=== PATIENT | male | born 1955 | race Caucasian/White ===

== ENCOUNTER 2017-09-07 09:34 | Inpatient (IN) | payer OTHER ==
[~2017-09-07] VITALS: Ht 170.2 cm; Wt 69.8 kg
[~2017-09-07 09:34] MED LIST: AMOXICILLIN 50500 MG PO; NO HOME MEDICATIONS; NORCO 325 MG-51 TAB PO; NORCO 325 MG-7.1 TAB PO
[2017-09-07] MEDS ORDERED: TENORMIN 2525 MG/TAB PO (09:55)
[2017-09-07 10:47] LABS: INR 1.4 (0.8-3.0); PROTHROMBIN TIME 16.1 SECONDS (9.7-12.8)
[2017-09-07 10:49] LABS: HEMOGLOBIN 12.9 g/dl (13.5-18.0); MEAN CELL VOLUME 104 fl (80.0-100.0); MEAN CORPUSCULAR HEMOGLOBIN 37 pg (27.0-31.0); MEAN CORPUSCULAR HGB CONC 35 g/dl (33.0-37.0); MEAN PLATELET VOLUME 9.9 fl (7.4-10.4); PLATELET COUNT 257 K/mm3 (130-400); WHITE BLOOD COUNT 16.3 K/mm3 (4.8-10.8)
[2017-09-07 10:50] LABS: ADD PATHOLOGY DIFF REVIEW NO; ADJUSTED CALCIUM 9.1 mg/dL (8.4-10.2); ALANINE AMINOTRANSFERASE 58 U/L (21-72); ALBUMIN 3.1 gm/dL (3.5-5.0); ALKALINE PHOSPHATASE 377 U/L (50-136); ANION GAP 6 mmol/L (7-16); BILIRUBIN,TOTAL 5.3 mg/dL (0.0-1.0); BLOOD UREA NITROGEN 7 mg/dL (9-20); CALCIUM 8.4 mg/dL (8.4-10.2); CARBON DIOXIDE 25 mmol/L (22-30); CHLORIDE 100 mmol/L (98-107); CREATININE, serum 0.55 mg/dL (0.66-1.25); GLUCOSE 125 mg/dL (74-106); HEMATOCRIT 36.5 % (42.0-52.0); LIPASE 259 U/L (23-300); POTASSIUM 3.6 mmol/L (3.4-5.0); SODIUM 131 mmol/L (137-145); TOTAL PROTEIN 6.9 gm/dL (6.4-8.2)
[2017-09-07 10:51] LABS: ALCOHOL(ethanol),MEDICAL < 10 mg/dL
[2017-09-07 11:23] LABS: BAND 13 % (0-10); EOSINOPHIL 1 % (0-4); LYMPHOCYTE 14 % (20.0-51.0); NEUTROPHILS 59 % (42.0-75.2); PLATELET ESTIMATE NORMAL (NORMAL); TARGET CELLS 2+; TOTAL CELLS COUNTED 100
[2017-09-07 13:07] VITALS: BP 117/79; PULSE 88; TEMP 98.1
[2017-09-07 16:14] LABS: PERITONEAL FLUID RBC 0 /mm3 (0-0)
[2017-09-07 16:26] VITALS: BP 114/62; PULSE 98; TEMP 99.4
[2017-09-07 18:58] VITALS: BP 137/81; PULSE 100; TEMP 98.3
[2017-09-07 23:46] VITALS: BP 104/72; PULSE 96; TEMP 98.7
[2017-09-08 00:38] LABS: COLLECTION METHOD CLEAN CATCH
[2017-09-08 01:20] LABS: MUCOUS Present /lpf; PH 6 (5-8); SQUAMOUS EPITHELIAL None Seen /hpf; URINE APPEARANCE Clear; URINE BACTERIA Rare /hpf; URINE BILIRUBIN Positive (NEGATIVE); URINE BLOOD Negative (NEGATIVE); URINE CALCIUM OXALATE CRYSTAL Present /hpf; URINE COLOR Amber; URINE GLUCOSE Negative (NEGATIVE); URINE KETONE Negative (NEGATIVE); URINE LEUKOCYTE ESTERASE Negative (NEGATIVE); URINE PROTEIN(semi-quant) Negative (NEGATIVE); URINE UROBILINOGEN >=4.0 mg/dL (NEGATIVE)
[2017-09-08 05:05] VITALS: BP 117/72; PULSE 82; TEMP 99.1
[2017-09-08 07:19] LABS: BASO # 0.1 (0.0-0.2); BASO % 0.7 % (0.0-2.0); EOS # 0.2 (0.0-0.7); EOS % 1.8 % (0-4.0); GRAN # 8.6 (1.4-6.5); GRAN % 70.7 % (42.2-75.2); LYMPH # 1.8 (1.2-3.4); LYMPH % 14.6 % (20.0-51.0); MEAN CELL VOLUME 105 fl (80.0-100.0); MEAN CORPUSCULAR HGB CONC 35 g/dl (33.0-37.0); MONO # 1.4 (0.1-0.6); MONO % 11.6 % (1.7-9.3); PLATELET COUNT 200 K/mm3 (130-400); RED BLOOD COUNT 3.02 M/mm3 (4.20-5.60); WHITE BLOOD COUNT 12.2 K/mm3 (4.8-10.8)
[2017-09-08 07:26] LABS: HEMATOCRIT 31.7 % (42.0-52.0); HEMOGLOBIN 11.2 g/dl (13.5-18.0); MEAN CORPUSCULAR HEMOGLOBIN 37 pg (27.0-31.0)
[2017-09-08 07:44] LABS: ADJUSTED CALCIUM 9.1 mg/dL (8.4-10.2); ALBUMIN 2.3 gm/dL (3.5-5.0); BILIRUBIN,TOTAL 5.6 mg/dL (0.0-1.0); CALCIUM 7.7 mg/dL (8.4-10.2); CREATININE, serum 0.54 mg/dL (0.66-1.25); MAGNESIUM 1.5 mg/dL (1.6-2.3); POTASSIUM 3.6 mmol/L (3.4-5.0); TOTAL PROTEIN 5.5 gm/dL (6.4-8.2)
[2017-09-08 08:11] VITALS: BP 105/69; PULSE 74; TEMP 98
[2017-09-08 11:20] VITALS: BP 101/70; PULSE 92; TEMP 97.6
[2017-09-08 15:50] VITALS: BP 108/70; PULSE 106; TEMP 97.4
[2017-09-08 20:58] VITALS: BP 128/69; PULSE 95; TEMP 98.7
[2017-09-08 23:33] VITALS: BP 111/81; PULSE 110; TEMP 97.5
[2017-09-09] VITALS (11 sets, daily range): BP systolic 100–136; BP diastolic 58–88; PULSE 80–110; TEMP 97.9–98.4
[2017-09-09 06:45] LABS: HEMATOCRIT 32.6 % (42.0-52.0); HEMOGLOBIN 11.5 g/dl (13.5-18.0); MEAN CELL VOLUME 104 fl (80.0-100.0); MEAN CORPUSCULAR HEMOGLOBIN 37 pg (27.0-31.0); MEAN CORPUSCULAR HGB CONC 35 g/dl (33.0-37.0); PLATELET COUNT 205 K/mm3 (130-400); RED BLOOD COUNT 3.13 M/mm3 (4.20-5.60); WHITE BLOOD COUNT 12.3 K/mm3 (4.8-10.8)
[2017-09-09 06:46] LABS: ADD PATHOLOGY DIFF REVIEW NO
[2017-09-09 07:03] LABS: ADJUSTED CALCIUM 9.1 mg/dL (8.4-10.2); ALBUMIN 2.4 gm/dL (3.5-5.0); BILIRUBIN,TOTAL 5.2 mg/dL (0.0-1.0); CALCIUM 7.8 mg/dL (8.4-10.2); CREATININE, serum 0.53 mg/dL (0.66-1.25); MAGNESIUM 1.8 mg/dL (1.6-2.3); POTASSIUM 3.5 mmol/L (3.4-5.0)
[2017-09-09 07:36] LABS: BAND 5 % (0-10); BASOPHIL 1 % (0-2); LYMPHOCYTE 19 % (20.0-51.0); NEUTROPHILS 65 % (42.0-75.2); PLATELET ESTIMATE NORMAL (NORMAL); TOTAL CELLS COUNTED 100
[2017-09-09] MEDS ORDERED: LASIX 40MG TABL40 MG PO (12:31)
[2017-09-09] MEDS ORDERED: ZANTAC 150150 MG PO (12:31)
[2017-09-09] MEDS ORDERED: K-TAB20 PO (12:32)
[2017-09-09] MEDS ORDERED: ALDACTONE50 MG PO (12:32)
[2017-09-11 17:19] LABS: ALPHA 1 ANTITRYPSIN TOTAL 171 mg/dL (())
== END 2017-09-09 15:07 | disposition home or self-care (01) | DRG 433 ==
LOC: COL.ER 09:34 → MEDICAL 11:17
PROVIDERS: Emergency Medicine; Internal Medicine Gastroenterology; Nurse Practitioner Family
PROC: 0W9G3ZZ Drainage of Peritoneal Cavity, Percutaneous Approach (ICD-10-PCS; principal; 2017-09-07)
PROC: 0D978ZX Drainage of Stomach, Pylorus, Via Natural or Artificial Opening Endoscopic, Diagnostic (ICD-10-PCS; 2017-09-09)
DX: K70.31 Alcoholic cirrhosis of liver with ascites (principal); E87.1 Hypo-osmolality and hyponatremia; I10 Essential (primary) hypertension; E78.5 Hyperlipidemia, unspecified; E83.42 Hypomagnesemia; F17.210 Nicotine dependence, cigarettes, uncomplicated
CPT/HCPCS: 99222-AI; 99232-AI; 99239; J1650; J2704; J3430; J3475; J7030

== ENCOUNTER 2018-03-01 08:55 | Day surgery (SDC) | payer OTHER ==
[~2018-03-01] VITALS: Ht 170.2 cm; Wt 67.9 kg
[~2018-03-01 08:55] MED LIST changes: +ALDACTONE50 MG PO; +K-TAB20 PO; +LASIX 40MG TABL40 MG PO; +TENORMIN 2525 MG/TAB PO; +ZANTAC 150150 MG PO
[2018-03-01] MEDS ORDERED: ALDACTONE 100M100 MG PO (09:41)
[2018-03-01] MEDS ORDERED: K-TAB20 PO (09:42)
[2018-03-01] MEDS ORDERED: LASIX 40MG TABL40 MG PO (09:42)
[2018-03-01] MEDS ORDERED: ZANTAC 150MG T150 MG PO (09:43)
[2018-03-01 10:06] VITALS: BP 109/54; PULSE 74; TEMP 97.6
[2018-03-01 10:59] VITALS: BP 120/67; PULSE 78; TEMP 97
[2018-03-01 11:15] VITALS: BP 125/78; PULSE 72
== END 2018-03-01 11:40 | disposition home or self-care (01) ==
LOC: SDCO 08:55
DX: Z12.11 Encounter for screening for malignant neoplasm of colon (principal); Z86.010 Personal history of colon polyps; D12.8 Benign neoplasm of rectum; I10 Essential (primary) hypertension; F17.210 Nicotine dependence, cigarettes, uncomplicated; K74.60 Unspecified cirrhosis of liver; Z86.73 Personal history of transient ischemic attack (TIA), and cerebral infarction without residual deficits; K21.9 Gastro-esophageal reflux disease without esophagitis; Z87.19 Personal history of other diseases of the digestive system
CPT/HCPCS: J2704; J3010; J7030

== ENCOUNTER 2018-10-30 18:54 | Emergency (ER) | payer OTHER ==
[~2018-10-30] VITALS: Ht 170.2 cm; Wt 69.5 kg
[~2018-10-30 18:54] MED LIST changes: +ALDACTONE 100M100 MG PO; +ZANTAC 150MG T150 MG PO
[2018-10-30 19:05] VITALS: TEMP 97.9
[2018-10-30 20:22] LABS: BASO # 0.1 (0.0-0.2); BASO % 0.7 % (0.0-2.0); EOS # 0.2 (0.0-0.7); EOS % 2.1 % (0-4.0); GRAN # 5.4 (1.4-6.5); HEMOGLOBIN 14.8 g/dl (13.5-18.0); LYMPH # 1.2 (1.2-3.4); LYMPH % 14.4 % (20.0-51.0); MEAN CELL VOLUME 98 fl (80.0-100.0); MEAN CORPUSCULAR HEMOGLOBIN 36 pg (27.0-31.0); MEAN CORPUSCULAR HGB CONC 37 g/dl (33.0-37.0); MEAN PLATELET VOLUME 8.8 fl (7.4-10.4); MONO # 1.7 (0.1-0.6); MONO % 19.2 % (1.7-9.3); PLATELET COUNT 123 K/mm3 (130-400); RED BLOOD COUNT 4.07 M/mm3 (4.20-5.60)
[2018-10-30 20:41] LABS: ALBUMIN 4.2 gm/dL (3.5-5.0); BILIRUBIN,TOTAL 3.7 mg/dL (0.0-1.0); CALCIUM 9.2 mg/dL (8.4-10.2); CREATININE, serum 1.14 mg/dL (0.66-1.25); MAGNESIUM 1.6 mg/dL (1.6-2.3); POTASSIUM 4.7 mmol/L (3.4-5.0); TOTAL PROTEIN 8.1 gm/dL (6.4-8.2)
[2018-10-30 20:48] LABS: TROPONIN-I 0.027 ng/mL (0.000-0.034)
[2018-10-30 23:05] VITALS: BP 119/68; PULSE 95
== END 2018-10-30 23:06 | disposition home or self-care (01) ==
LOC: COL.ER 18:54
PROVIDERS: Emergency Medicine
DX: E87.1 Hypo-osmolality and hyponatremia (principal); E78.3 Hyperchylomicronemia; F17.210 Nicotine dependence, cigarettes, uncomplicated
CPT/HCPCS: J7030

== ENCOUNTER 2018-11-05 17:41 | Emergency (ER) | payer OTHER ==
[~2018-11-05] VITALS: Ht 170.2 cm; Wt 72.7 kg
[2018-11-05 17:48] VITALS: BP 121/60; TEMP 97.1
[2018-11-05 19:01] LABS: HEMATOCRIT 38.6 % (42.0-52.0); MEAN CELL VOLUME 100 fl (80.0-100.0); MEAN CORPUSCULAR HEMOGLOBIN 36 pg (27.0-31.0); MEAN CORPUSCULAR HGB CONC 36 g/dl (33.0-37.0); MEAN PLATELET VOLUME 8.7 fl (7.4-10.4); PLATELET COUNT 111 K/mm3 (130-400); RED BLOOD COUNT 3.85 M/mm3 (4.20-5.60); REDCELL DISTRIBUTION WIDTH-CV 12.5 % (11.5-14.5)
[2018-11-05 19:15] LABS: ALANINE AMINOTRANSFERASE 26 U/L (21-72); ALBUMIN 3.8 gm/dL (3.5-5.0); ALCOHOL(ethanol),MEDICAL < 10 mg/dL; ALKALINE PHOSPHATASE 275 U/L (50-136); ANION GAP 7 mmol/L (7-16); AST,SGOT 71 U/L (15-37); BILIRUBIN,TOTAL 2.5 mg/dL (0.0-1.0); BLOOD UREA NITROGEN 11 mg/dL (9-20); C-REACTIVE PROTEIN < 0.5 mg/dL (0.0-0.9); CALCIUM 9.5 mg/dL (8.4-10.2); CARBON DIOXIDE 21 mmol/L (22-30); CHLORIDE 94 mmol/L (98-107); CREATININE, serum 0.85 mg/dL (0.66-1.25); GLUCOSE 111 mg/dL (74-106); MAGNESIUM 1.7 mg/dL (1.6-2.3); PHOSPHOROUS 3.9 mg/dL (2.5-4.5); POTASSIUM 4.8 mmol/L (3.4-5.0); SODIUM 122 mmol/L (137-145); TOTAL PROTEIN 7.4 gm/dL (6.4-8.2)
[2018-11-05 19:44] VITALS: PULSE 89
[2018-11-05 19:45] LABS: BAND 4 % (0-10); BASOPHIL 1 % (0-2); EOSINOPHIL 1 % (0-4); LYMPHOCYTE 20 % (20.0-51.0); NEUTROPHILS 62 % (42.0-75.2)
[2018-11-05 19:46] LABS: PLATELET ESTIMATE NORMAL (NORMAL)
== END 2018-11-05 19:45 | disposition home or self-care (01) ==
LOC: COL.ER 17:41
PROVIDERS: Emergency Medicine
DX: E87.1 Hypo-osmolality and hyponatremia (principal); E78.00 Pure hypercholesterolemia, unspecified; F17.210 Nicotine dependence, cigarettes, uncomplicated

== ENCOUNTER 2019-10-14 12:58 | Emergency (ER) | payer OTHER ==
[~2019-10-14] VITALS: Ht 167.6 cm; Wt 71.8 kg
[2019-10-14 13:05] VITALS: TEMP 98.2
[2019-10-14] MEDS ORDERED: MOBIC15 MG PO (13:18)
[2019-10-14 13:52] LABS: BASO # 0.1 (0.0-0.2); BASO % 0.9 % (0.0-2.0); EOS # 0.1 (0.0-0.7); EOS % 1.3 % (0-4.0); GRAN # 4.5 (1.4-6.5); GRAN % 66.2 % (42.2-75.2); HEMATOCRIT 38.1 % (42.0-52.0); HEMOGLOBIN 13.2 g/dl (13.5-18.0); LYMPH % 14.4 % (20.0-51.0); MEAN CELL VOLUME 98 fl (80.0-100.0); MEAN CORPUSCULAR HEMOGLOBIN 34 pg (27.0-31.0); MEAN CORPUSCULAR HGB CONC 35 g/dl (33.0-37.0); MEAN PLATELET VOLUME 10.4 fl (7.4-10.4); MONO # 1.1 (0.1-0.6); MONO % 16.9 % (1.7-9.3); PLATELET COUNT 85 K/mm3 (130-400); RED BLOOD COUNT 3.88 M/mm3 (4.20-5.60); REDCELL DISTRIBUTION WIDTH-CV 14.5 % (11.5-14.5)
[2019-10-14 13:54] LABS: ALBUMIN 3.7 gm/dL (3.5-5.0); BILIRUBIN,TOTAL 3.9 mg/dL (0.0-1.0); CALCIUM 8.9 mg/dL (8.4-10.2); CREATININE, serum 0.73 (0.66-1.25); INR 1.4 (0.8-3.0); POTASSIUM 4.3 mmol/L (3.4-5.0); PROTHROMBIN TIME 16.7 SECONDS (9.7-12.8); TOTAL PROTEIN 7.3 gm/dL (6.4-8.2)
[2019-10-14 14:05] LABS: TROPONIN-I 0.032 ng/mL (0.000-0.035)
[2019-10-14 16:30] VITALS: BP 145/77; PULSE 91
== END 2019-10-14 16:45 | disposition short-term general hospital (02) ==
LOC: COL.ER 12:58
PROVIDERS: Emergency Medicine
DX: I61.9 Nontraumatic intracerebral hemorrhage, unspecified (principal); I10 Essential (primary) hypertension; E78.5 Hyperlipidemia, unspecified
CPT/HCPCS: J7050; Q9967

== ENCOUNTER 2022-03-23 16:17 | Inpatient (IN) | payer OTHER ==
[~2022-03-23] VITALS: Ht 167.6 cm; Wt 74.8 kg
[~2022-03-23 16:17] MED LIST changes: +MOBIC15 MG PO
[2022-03-23 17:09] LABS: BASO # 0.1 K/mm3 (0.0-0.2); BASO % 1.5 % (0.0-2.0); EOS # 0.1 K/mm3 (0.0-0.7); EOS % 1.6 % (0.0-4.0); GRAN # 3.5 K/mm3 (1.4-6.5); GRAN % 56.6 % (42.2-75.2); HEMOGLOBIN 12.4 g/dl (13.5-18.0); LYMPH # 1.3 K/mm3 (1.2-3.4); LYMPH % 20.9 % (20.0-51.0); MEAN CELL VOLUME 96 fl (80.0-100.0); MEAN CORPUSCULAR HEMOGLOBIN 35 pg (27-31); MEAN CORPUSCULAR HGB CONC 37 g/dl (33.0-37.0); MEAN PLATELET VOLUME 11.9 fl (7.4-10.4); MONO # 1.2 K/mm3 (0.1-0.6); MONO % 18.8 % (1.7-9.3); PLATELET COUNT 53 K/mm3 (130-400); RED BLOOD COUNT 3.55 M/mm3 (4.20-5.60); REDCELL DISTRIBUTION WIDTH-CV 16.4 % (11.5-14.5)
[2022-03-23 17:36] LABS: ALBUMIN 2.5 gm/dL (3.4-4.8); BILIRUBIN,TOTAL 9.5 mg/dL (0.2-1.2); CALCIUM 8.5 mg/dL (8.4-10.2); CREATININE, serum 0.85 mg/dL (0.72-1.25); POTASSIUM 3.2 mmol/L (3.5-4.5); TOTAL PROTEIN 6.6 gm/dL (6.2-8.1)
[2022-03-23 17:49] LABS: TROPONIN-I 0.128 ng/mL (0.00-0.033)
[2022-03-23 18:43] LABS: COLLECTION METHOD CLEAN CATCH
[2022-03-23 18:50] LABS: PROTHROMBIN TIME 23.1 SECONDS (9.7-12.8)
[2022-03-23] MEDS ORDERED: NEURONTIN300 MG/CAP PO (18:56)
[2022-03-23 19:08] LABS: AMORPHOUS CRYSTAL Present (NOT PRESENT); MUCOUS Present (NOT PRESENT); PH 7 (5-8); SQUAMOUS EPITHELIAL None Seen /hpf (0-10); URINE APPEARANCE Hazy (CLEAR/HAZY); URINE BACTERIA None Seen /hpf (NONE SEEN); URINE BLOOD 1+ (NEGATIVE); URINE CALCIUM OXALATE CRYSTAL Present (NOT PRESENT); URINE COLOR Amber (YELLOW); URINE GLUCOSE Negative (NEGATIVE); URINE KETONE Negative (NEGATIVE); URINE NITRATE Negative (NEGATIVE); URINE PROTEIN(semi-quant) Negative (NEGATIVE); URINE RBC >50 /hpf (0-2); URINE UROBILINOGEN >=4.0 (NEGATIVE)
[2022-03-23] MEDS ORDERED: PEPCID 20MG TAB20 MG PO (19:31)
[2022-03-23 23:35] VITALS: BP 128/66; PULSE 118; TEMP 98.2
[2022-03-24 04:05] VITALS: BP 134/67; PULSE 117; TEMP 98.4
--- NOTE | 2022-03-24 05:45 | NUR ---
PT ARRIVED TO THE MEDICAL FLOOR AT 2330HRS TO ROOM 313. PT A&O X 4; VSS; O2 RA. PT DENIED GENERAL PAIN, CHEST PAIN, PALPITATIONS, SOB, N,V,D OR DIZZINESS. ADMISSIONS ASSESSMENT AND MED REC ARE COMPLETE. PT ORIENTED TO ROOM AND HOSPITAL POLICY. POC DISCUSSED WITH PT. PT VERBALIZED UNDERSTANDING. ALL QUESTIONS AND CONCERNS ADDRESSED. PT EXPRESSED NO OTHER NEEDS AT THIS TIME. CALL LIGHT WITHIN REACH.
[2022-03-24 07:33] LABS: BASO # 0.1 K/mm3 (0.0-0.2); BASO % 1.1 % (0.0-2.0); EOS # 0.2 K/mm3 (0.0-0.7); GRAN # 3.6 K/mm3 (1.4-6.5); GRAN % 58.4 % (42.2-75.2); HEMOGLOBIN 11.4 g/dl (13.5-18.0); LYMPH # 1.2 K/mm3 (1.2-3.4); LYMPH % 19.4 % (20.0-51.0); MEAN CELL VOLUME 98 fl (80.0-100.0); MEAN CORPUSCULAR HEMOGLOBIN 36 pg (27-31); MEAN CORPUSCULAR HGB CONC 36 g/dl (33.0-37.0); MEAN PLATELET VOLUME 11.5 fl (7.4-10.4); MONO # 1.1 K/mm3 (0.1-0.6); MONO % 17.6 % (1.7-9.3); RED BLOOD COUNT 3.19 M/mm3 (4.20-5.60)
[2022-03-24 07:42] LABS: HEMATOCRIT 31.3 % (42.0-52.0)
[2022-03-24 07:45] VITALS: BP 128/70; PULSE 118; TEMP 98.3
[2022-03-24 07:46] LABS: PLATELET COUNT 40 K/mm3 (130-400)
[2022-03-24 08:12] LABS: ALBUMIN 2.1 gm/dL (3.4-4.8); BILIRUBIN,TOTAL 9.6 mg/dL (0.2-1.2); CALCIUM 7.4 mg/dL (8.4-10.2); CREATININE, serum 0.77 mg/dL (0.72-1.25); MAGNESIUM 1.8 mg/dL (1.6-2.6); PHOSPHOROUS 3.1 mg/dL (2.3-4.7); POTASSIUM 3.6 mmol/L (3.5-4.5); TOTAL PROTEIN 5.7 gm/dL (6.2-8.1)
[2022-03-24 08:25] LABS: TROPONIN-I 0.149 ng/mL (0.00-0.033)
--- NOTE | 2022-03-24 08:33 | NUR ---
Patient laying in bed upon entering the room. Patient states he has not eaten in 4days and would like some breakfast. This RN ordered the patient breakfast, he ate about 50% of his meal. Patient A&Ox4, and a SBA in the room. He is shaky when getting out of bed and a bit unsteady. Patient denying any concerns at this time. Would like to sleep as much as possible, and states that overall he feels better. Call light w/in reach and bed alarm on.
[2022-03-24 11:43] VITALS: BP 118/51; PULSE 108; TEMP 98.2
--- NOTE | 2022-03-24 14:18 | NUR ---
Pad Machine Offbearer met with patient to discuss discharge planning. Patient lives alone in [place] and advised his , Judy lives in [place] with her father who she is a caregiver for. Patient goes to the [facility] [place] [facility] for primary care and medications. Patient does not use any DME and is independent with ADLS. Patient does not have Advance Directives and is not interested in designating DPOA-HC at this time. Patient plans to return home at time of discharge. Discharge Plan: Home
[2022-03-24 15:16] VITALS: BP 122/66; PULSE 111; TEMP 98.1
--- NOTE | 2022-03-24 17:12 | NUR ---
New IV started in the patient's right forearm. IV in the left AC and right wrist removed. Patient made high fall risk, all proper garment on.
[2022-03-24 20:10] VITALS: BP 115/55; PULSE 121; TEMP 98.6
[2022-03-24 20:20] VITALS: BP 119/54; PULSE 124; TEMP 98.3
[2022-03-25 00:29] VITALS: BP 109/57; PULSE 89; TEMP 98
--- NOTE | 2022-03-25 01:00 | NUR ---
ASSESSMENT COMPLETE FOR THIS SHIFT. PT RESTING IN BED WITH HIS BY HIS SIDE. PT DENIED GENERAL PAIN, CHEST PAIN, SOB, N,V,D OR DIZZINESS. PT WAS TACHYCARDIC. PT STARTED ON METOPROLOL. WILL CONTINUE TO MONITOR. PT EXPRESSED NO OTHER NEEDS. CALL LIGHT WITHIN REACH.
[2022-03-25 02:50] VITALS: BP 94/55; PULSE 93; TEMP 98.1
--- NOTE | 2022-03-25 03:45 | NUR ---
PT PULLED OUT HIS IV AND PULLED OFF HIS TELLE. WHEN ASKED IF EVERYTHING WAS OK, PT STATED, I NEED TO GET OUT OF HERE. MY 'S HAVING A YARD SALE AND I NEED TO HELP HER WITH THAT, PLUS TOMORROW'S FATHER'S DAY AND I'M NOT GOING TO MISS SPENDING THAT TIME WITH MY KIDS AND GRANDKIDS. I ASKED PT IF HE KNEW WHERE HE WAS AND WHAT TIME IT WAS. PT STATED YES, THAT HE KNEW HE WAS IN THE HOSPITAL AND THAT IT WAS AFTER 3 O'CLOCK IN THE MORNING. I EXPLAINED TO PT ALL OF THE RISKS OF HIM LEAVING AMA TO INCLUDE . PT STATED, NOTHING WAS GOING TO CHANGE HIS MIND. HOSPITALIST CALLED. SHE ALSO EXPLAINED THE RISKS OF LEAVING AMA. PT ASSESSED. PT SIGNED INFORMED CONSENT TO REFUSE TREATMENT AND PROCEEDED TO LEAVE AGAINST MEDICAL ADVISE. PT ASKED IF WE COULD GET HIM A TAXI. PT STATED NO, HIS WAS GOING TO COME GET HIM. PT ESCORTED OUT OF FACILITY BY AID AT THIS TIME.
== END 2022-03-25 03:45 | disposition left against medical advice (07) | DRG 432 ==
LOC: COL.ER 16:17 → MEDICAL 21:45
PROVIDERS: Family Medicine; Nurse Practitioner Family; ADMIT Student in an Organized Health Care Education/Training Program
DX: K70.30 Alcoholic cirrhosis of liver without ascites (principal); I21.4 Non-ST elevation (NSTEMI) myocardial infarction; E87.2 Acidosis; K76.6 Portal hypertension; I50.32 Chronic diastolic (congestive) heart failure; I35.0 Nonrheumatic aortic (valve) stenosis; E78.5 Hyperlipidemia, unspecified; E86.0 Dehydration; E87.6 Hypokalemia; D69.6 Thrombocytopenia, unspecified; I49.3 Ventricular premature depolarization; F17.210 Nicotine dependence, cigarettes, uncomplicated; F10.20 Alcohol dependence, uncomplicated; E83.42 Hypomagnesemia; E83.39 Other disorders of phosphorus metabolism; E80.6 Other disorders of bilirubin metabolism; D64.9 Anemia, unspecified; I34.0 Nonrheumatic mitral (valve) insufficiency; K80.20 Calculus of gallbladder without cholecystitis without obstruction; I11.0 Hypertensive heart disease with heart failure; M19.90 Unspecified osteoarthritis, unspecified site; Z53.29 Procedure and treatment not carried out because of patient's decision for other reasons; R53.1 Weakness; Z87.19 Personal history of other diseases of the digestive system; Z23 Encounter for immunization
CPT/HCPCS: 99223-AI; 99233-AI; 99239; J3475; J3480; J7030; J7040; J7120; Q9967